=== PATIENT | female | born 1940 | race Caucasian/White ===

== ENCOUNTER → 2016-08-21 | Outpatient (CLI) | payer OTHER | LOC: BHLMT 13:30 | PROVIDERS: ATTEND Internal Medicine Cardiovascular Disease | DX: Z01.818 Encounter for other preprocedural examination (principal); R06.09 Other forms of dyspnea; G47.33 Obstructive sleep apnea (adult) (pediatric); I10 Essential (primary) hypertension; I51.9 Heart disease, unspecified; I48.0 Paroxysmal atrial fibrillation | CPT/HCPCS: 93005-PO ==

== ENCOUNTER 2016-08-26 07:25 | Inpatient (IN) | payer OTHER ==
[2016-08-10 10:46] LABS: % IMMATURE GRANULYOCYTES 0.2 % (0.0-1.1); ABSOLUTE IMMATURE GRANULOCYTES 0.02 10^3/uL (0.00-0.10); ADD DIFF? NO; ADD MORPH? NO; ADD SCAN? NO; ATYPICAL LYMPHOCYTE FLAG 0 (0-99); FRAGMENT RBC FLAG 0 (0-99); HEMATOCRIT 39.7 % (38.0-47.0); HEMOGLOBIN 13.6 g/dL (12.6-16.3); LEFT SHIFT FLG 0 (0-99); LIPEMIA HEMOLYSIS FLAG 90 (0-99); MEAN CELL HEMOGLOBIN 30.8 pg (27.9-34.1); MEAN CELL HEMOGLOBIN CONCENTR. 34.3 g/dL (32.4-36.7); PLATELET CLUMPS FLAG 0 (0-99); PLATELET COUNT 283 10^3/uL (150-400); RED BLOOD CELL COUNT 4.41 10^6/uL (4.18-5.33); RED CELL DISTRIBUTION WIDTH 12.1 % (11.5-15.2)
[2016-08-10 11:05] LABS: ANION GAP 12 mEq/L (8-16); CALCIUM 9.9 mg/dL (8.5-10.4); CARBON DIOXIDE 23 mEq/l (22-31); CHLORIDE 105 mEq/L (97-110); CREATININE 1.1 mg/dL (0.6-1.0); GLOMERULAR FILTRATION RATE 48; GLUCOSE 104 mg/dL (70-100); POTASSIUM 4.4 mEq/L (3.5-5.2); SODIUM 140 mEq/L (134-144)
--- NOTE | 2016-08-25 21:09 | GHP ---
[f rep st] PREOP HISTORY AND PHYSICAL DATE OF ADMISSION: 08/26/2016 PROBLEM: Severe right knee degenerative arthritis. HISTORY OF PRESENT ILLNESS: The patient is a 76-year-old female who will be admitted for a right total knee arthroplasty with Dr. Valdez at [facility] on August 26, 2016. The patient has had several years of progressive and more debilitating pain in the right knee. She underwent a left total knee arthroplasty in 2009 with a good result. Because of her recalcitrant response to conservative therapies of the right knee, she has elected to proceed with the surgery. She has tried and failed physical therapy , cortisone injection, viscosupplementation injections; and NSAIDs are contraindicated in her particular case. The patient has pain that prevents her from falling asleep quickly at night. Her knee is also very stiff for several hours in the morning. Her activities have become severely limited because of the pain. PAST MEDICAL HISTORY: Pertinent for lone atrial fibrillation after recent endoscopy, sleep apnea with use of a CPAP and hypertension. No history of MRSA , CAD, DVT, PE or hepatitis. CURRENT MEDICATIONS: Hydrochlorothiazide 12.5 mg daily, Pepcid 20 mg b.i.d., glucosamine omega-3, multivitamin, magnesium, vitamin D and potassium. MEDICATION ALLERGIES: Penicillin which causes hives, and sulfa allergy which causes vomiting. Please note that the patient has taken Celebrex without any problems in the past. SOCIAL HISTORY: The patient is a . She lives alone in [place]. She is retired. Nonsmoker. No alcohol intake. No caffeine or illicit drug use. Her activities include cycling and swimming. FAMILY HISTORY: Pertinent for esophageal cancer and breast cancer. PHYSICAL EXAMINATION: GENERAL: She is a healthy-appearing 76-year-old female. VITAL SIGNS: Height 5 feet, 7 inches tall. Weight 198 pounds. BMI 31. HEENT: Head is normocephalic, atraumatic. Eyes are PERRLA. Conjunctivae and sclerae are clear. Mouth: She has good oral hygiene without any loose teeth. LUNGS: Clear. HEART: Regular rate and rhythm without murmurs, gallops or rubs. EXTREMITIES: Pertinent findings are limited to the patient's right knee. She has full right knee extension, 115 degrees of flexion with pain at end range. There is moderate subpatellar crepitus noted with active knee extension. Her knee is stable to exam. DIAGNOSTIC IMAGING: Recent x-rays taken of the patient's right knee show near [id number] degenerative arthritis of the medial compartment and patellofemoral compartment with peripheral osteophyte formation, a moderate- sized subcortical cyst on the medial femoral condyle and increased subchondral sclerosis. IMPRESSION ON ADMISSION: 1. Severe right knee degenerative arthritis. 2. Lone atrial fibrillation after recent endoscopy. 3. Sleep apnea with use of CPAP. 4. Treated hypertension. 5. History of left total knee arthroplasty with good result. 6. History of bilateral total hip arthroplasties with good result. PLAN: The plan will be for the patient to undergo a right total knee arthroplasty. The surgery has been described to the patient including the risks , benefits and expectations. She understands the importance of postoperative physical therapy. She understands the risk of infection, blood vessel or nerve injury, persistent knee pain and/or stiffness. She also understands the risk of blood clots or PE. All of her questions have been answered, and she consents to surgery here in the office. /[id number]/MODL MTDD
[~2016-08-26 07:25] MED LIST: ACETAMINOPHEN 325 MG TAB PO ONE; CHLORHEXIDINE GLUC HIBICLENS 118 ML BTL TP ONE; DEXAMETHASONE 4 MG/ML VIAL IVP ONE; FAMOTIDINE 20 MG TAB PO ONE; NS IV ONE; POVIDONE-IODINE 20 ML in SODIUM CL IRRIG SOLUTION 500 ML IRR ONE; ROPI/epiNEPH/KETOROLAC JOINT COCKTAIL IU ONE; TRANEXAMIC ACID IV ONE
[2016-08-26] MEDS ORDERED: VANCOMYCIN 1 GM VIAL IV ONE ×2 (08:01)
[2016-08-26] MEDS ORDERED: ceFAZolin 1 GM/5 ML SYR ONE (08:02)
[2016-08-26] MEDS ORDERED: FAMOTIDINE 20 MG TAB ONE (08:19)
[2016-08-26] MEDS ORDERED: DEXAMETHASONE 4 MG/ML VIAL ONE (08:20)
[2016-08-26] MEDS ORDERED: ceFAZolin 2 GM/DEXTROSE 100 ML IV ONE (08:30)
[2016-08-26] MEDS ORDERED: ACETAMINOPHEN 325 MG TAB ONE (08:37)
[2016-08-26] MEDS ORDERED: LR 1,000 ML IV ONE (08:58)
[2016-08-26] MEDS ORDERED: PROPOFOL/EMULSION 500 MG/50 ML BOTTLE IV ONE ×2 (09:34→10:35)
[2016-08-26] MEDS ORDERED: MIDAZOLAM 2 MG/2 ML VIAL ONE (09:38)
[2016-08-26] MEDS ORDERED: ROPIVACAINE HCL 150 MG/30 ML INJ ONE (11:00)
[2016-08-26] MEDS ORDERED: clonIDINE 1 MG/10 ML VIAL EP ONE (11:00)
[2016-08-26] MEDS ORDERED: ONDANSETRON DISINTEGRATING 4 MG TAB PO PRN (11:49)
[2016-08-26] MEDS ORDERED: oxyCODONE IR 5 MG TAB PO PRN (11:49)
[2016-08-26] MEDS ORDERED: TEMAZEPAM 15 MG CAP PO PRN (11:49)
[2016-08-26] MEDS ORDERED: METOCLOPRAMIDE 10 MG/2 ML VIAL IVP PRN (11:49)
[2016-08-26] MEDS ORDERED: ONDANSETRON 4 MG/2 ML VIAL IVP PRN (11:49)
[2016-08-26] MEDS ORDERED: DIPHENOXYLATE/ATROPINE LOMOTIL 1 TAB PO PRN (11:49)
[2016-08-26] MEDS ORDERED: NS 500 ML IV PRN (11:49)
[2016-08-26] MEDS ORDERED: diphenhydrAMINE 25 MG CAP PO PRN (11:49)
[2016-08-26] MEDS ORDERED: BISACODYL 10 MG SUPP PR PRN (11:49)
[2016-08-26] MEDS ORDERED: LACTULOSE 20 GM/30 ML UDCUP PO PRN (11:49)
[2016-08-26] MEDS ORDERED: POLYETHYLENE GLYCOL 3350 17 GM PKT PO PRN (11:49)
[2016-08-26] MEDS ORDERED: CYCLOBENZAPRINE 10 MG TAB PO PRN (11:49)
[2016-08-26] MEDS ORDERED: MAGNESIUM HYDROXIDE 30 ML UDCUP PO PRN (11:49)
[2016-08-26] MEDS ORDERED: PHARMACY PAIN CONSULT 1 EA MISC PRN (11:49)
[2016-08-26] MEDS ORDERED: KETOROLAC 30 MG/1 ML SDV IVP PRN (11:49)
[2016-08-26] MEDS ORDERED: PROMETHAZINE HCL 25 MG SUPPR PR PRN (11:49)
--- NOTE | 2016-08-26 11:59 | POSTOPPROG ---
Post Op Note Date of Operation: 08/26/16 Surgeon: Jarrod Valdez Accounts Receivable Analyst: Aminata Anesthesiologist: Milagro Anesthesia: IV Sedation, Spinal Post-op Diagnosis: R knee arthritis Procedure: R TKA Inf/Abcess present in the surg proc area at time of surgery?: No EBL: 50-100 (Adductor canal block)
[2016-08-26] MEDS ORDERED: LR 1,000 ML IV SCH (12:00)
--- NOTE | 2016-08-26 12:31 | GOP ---
[f rep st] OPERATIVE REPORT DATE OF OPERATION: 08/26/2016 SURGEON: Jarrod Valdez MD COAT FITTER: Nick Ramirez and Mikael May. ANESTHESIA: Combination of Marcaine spinal, IV sedation, and adductor canal block. ANESTHESIOLOGIST: Dr. Anup Humphrey. PREOPERATIVE DIAGNOSIS: Right knee severe degenerative arthritis. POSTOPERATIVE DIAGNOSIS: Right knee severe degenerative arthritis. PROCEDURE PERFORMED: Right total knee arthroplasty, cemented, Avendano and Nephew Journey II, posterio r stabilized. FINDINGS: DESCRIPTION OF PROCEDURE: The patient was given 2 g of preoperative IV Ancef within 60 minutes of s urgery. She also received IV tranexamic acid at a dose of 10 mg/kg. She was placed on the operatin g room table and given spinal anesthesia with Marcaine by Dr. Humphrey. She was then placed supine and given IV sedation. A Dick catheter was not used. She wore a DAVID stocking and SCD on the nonopera tive leg. Her right lower extremity was prepped with ChloraPrep from the upper thigh tourniquet to the tips of the toes. It was draped free using sterile sheets, stockinette, and Ioban plastic adhes juan drape. Her lower leg was wrapped with compressive Coban. The leg was exsanguinated with elevat ion and a 6-inch compressive wrap, and the pneumatic tourniquet was inflated to 300 mmHg. The World Health Organization time-out was performed to verify the correct patient identity and the correct s urgical site and side. The Boling time-out was also performed. The MediTAPayo leg holding device was sterilely attached to the operating room table and used throughout the procedure to help position th e knee. A straight midline incision was made centered on the patella. Subcutaneous tissues were sharply div ided and hemostasis was obtained using electrocautery. A medial subcutaneous flap was developed and the capsule and synovium were opened in the medial parapatellar fashion. Extensive degenerative ch anges were present in the medial compartment and patellofemoral joint. Her medial capsule and perio steum were elevated off the rim of the medial tibial plateau all the way around to the posteromedial corner. Her medial collateral ligament was released enough to balance the medial side of the knee. In order to improve exposure, her patella was prepared first. The original thickness of the gibbons la was measured. Peripheral osteophytes were removed. I cut a flat surface on the back of the bonilla lla. It was sized for a 35 mm resurfacing patellar component. I removed enough bone from the gibbons la such that the remaining bone plus the thickness of the patellar component recreated the original thickness of the patella. The composite thickness was 22 mm. The intramedullary alignment guide sy stem was used to set up the distal femoral cut. The distal femur was cut in 5 degrees of valgus. I made a +2 mm cut on the distal femur. The sizing jig was used to determine proper femoral sizing. She was a true size 6 without a shift. The 5 in 1 cutting block was applied, and the anterior and posterior condylar cuts and chamfer cuts were made. The final jig was used to remove the central po rtion of the distal femur to accommodate the posterior stabilized femoral component. I was careful to determine proper rotation by referencing off Whitesides line. Each cut was checked for accuracy before and after it was made. The femur was sized for a size 6 posterior stabilized component. The trial component was tapped securely into place and was a good fit. Next, the tibia was prepared. The proximal tibial cut was made using the extramedullary alignment g uide system. The cut was made in a few degrees of posterior slope. I was careful to achieve proper varus/valgus alignment and proper rotation. The posterior compartment was cleared of meniscal remn ants. Osteophytes were removed from the back of her femoral condyles. I checked the flexion extens ion gaps, and they were equal, balanced and rectangular. The tibia was sized for a size 4 component . With the trial components in place, I selected an 11 mm polyethylene posterior stabilized tibial insert. The knee came to full extension and flexed to 120 degrees. The bulkiness of her leg preven david further flexion. There was no overstuffing in flexion. Her collateral ligaments were stable an d balanced in 90 degrees of flexion and full extension. The trial patellar button was applied, and patellar tracking was checked. Tracking was excellent without any digital pressure. 40 mL of the j oint anesthetic cocktail was injected into the posterior capsule, the periarticular structures, the quadriceps muscle and tendon areas, and the subcutaneous tissues along the skin edges. The surfaces were prepared for cementing. They were carefully cleaned with the pulsating lavage irrigation and thoroughly dried. The CarboJet device was used to blow dry the cancellous surfaces. A double batch of high viscosity methylmethacrylate cement with 2 g of powdered vancomycin added was mixed. While it was still in a semiliquid state, all 3 components were cemented in place. Excess cement was rem marianne before it hardened. The 11 mm trial tibial insert was re-tried and was the proper thickness. The actual component was inserted and locked into place. The knee was thoroughly irrigated 1 final time with a dilute Betadine solution. The tourniquet was deflated and the total tourniquet time was 49 minutes. The vastus medialis portion of the extensor mechanism was repaired with several interrupted urgzzh-[id number]-loosf #2 FiberWire sutures. The capsule a nd synovium were closed first with multiple interrupted qjijlb-ns-aoygq 0 PDS sutures, followed by a running #2 barbed Ethicon STRATAFIX PDO suture. The subcutaneous tissues were closed with a runnin g 0 barbed Ethicon STRATAFIX Monoderm suture. The skin was closed with a running 3-0 barbed Ethicon STRATAFIX Monoderm subcuticular suture. The skin was sealed with half-inch Steri-Strips. The woun d was covered with Xeroform gauze and flat 4x4s. The knee was wrapped with Kerlix and 6-inch compre ssive wrap. A long-leg DAVID stocking and SCD were applied followed by the cooling device. The patie nt wore a stocking and SCD on the opposite leg during the procedure. I used a size 6 cemented Avendano and Nephew Oxinium posterior stabilized femoral component, a size 4 c emented tibial base plate, an 11 mm posterior stabilized tibial insert, and a 35 mm cemented round a ll-polyethylene resurfacing patellar component. The estimated blood loss following placement of the tourniquet was about 100 mL. The sponge and nee dle count were correct on 2 occasions. The patient was awakened from anesthesia, transferred to her [facility] and taken to PACU in sa tisfactory condition. There were no intraoperative complications. In the PACU, for additional postoperative pain control, Dr. Humphrey performed an adductor canal block. Nick Ramirez and Mikael May acted as surgical assistants. Their assistance was a medical abel sheikh. /[id number]/MODL
[2016-08-26] MEDS: ACETAMINOPHEN 325 MG TAB PO SCH ×3 (13:09→23:42)
[2016-08-26] MEDS: ceFAZolin 2 GM/DEXTROSE 100 ML IV SCH ×2 (13:44→21:16)
[2016-08-26] MEDS: TRANEXAMIC ACID 650 MG TAB PO SCH ×2 (17:26→23:42)
[2016-08-26] MEDS: traMADol 50 MG TAB PO PRN (20:21)
[2016-08-26] MEDS: ASPIRIN 325 MG TAB PO SCH (20:21)
[2016-08-26] MEDS: FAMOTIDINE 20 MG TAB PO SCH (20:21)
[2016-08-26] MEDS: SENNOSIDES/DOCUSATE SODIUM TAB PO SCH (20:22)
[2016-08-27 05:04] LABS: HEMATOCRIT 31.4 % (38.0-47.0); HEMOGLOBIN 10.6 g/dL (12.6-16.3)
[2016-08-27] MEDS: ACETAMINOPHEN 325 MG TAB PO SCH ×2 (05:12→13:24)
[2016-08-27 05:28] LABS: GLOMERULAR FILTRATION RATE 54
--- NOTE | 2016-08-27 07:43 | SOAPPROG ---
SOAP Progress Note Assessment/Plan: Assessment: Afebrile. Awake and alert. Mild pain so far. Has been up and walking in room. H/H is good. Films look good. Plan:More PT today. DC later today. 08/27/16 07:38 Objective: Vital Signs Temp Pulse Resp BP Pulse Ox 36.4 C 73 16 129/66 H 93 08/27/16 07:07 08/27/16 07:07 08/27/16 07:07 08/27/16 07:07 08/27/16 07:07 Laboratory Results 08/27/16 04:34 08/27/16 04:34 08/26/16 08/27/16 08/28/16 05:59 05:59 05:59 Intake Total 2795 Output Total 1350 Balance 1445 ICD10 Worksheet Patient Problems: Problems Problem Status Onset Knee osteoarthritis Acute - ICD10 Problem Qualifiers (1) Knee osteoarthritis Qualifiers: Osteoarthritis type: primary Laterality: right Qualified Code(s): M17.11 - Unilateral primary osteoarthritis, right knee
--- NOTE | 2016-08-27 07:47 | PDIAF ---
- Diagnosis Diagnosis: right knee osteoarthritis Code Status: Full Code - Medication Management Discharge Medications: Medications to Continue on Transfer Cholecalciferol Vit D3 [Vitamin D3 2000 units tab (OTC)] 4,000 units PO DAILY [Last Taken 08/18/16] Famotidine [Pepcid 20 MG (*)] 20 mg PO DAILY 08/07/16 [Last Taken 08/26/16] Herbals/Supplements -Info Only 1 ea PO DAILY 08/07/16 [Last Taken Unknown] Hydrochlorothiazide [HCTZ (*)] 12.5 mg PO DAILY 08/07/16 [Last Taken 08/25/16] Multivitamins [Multivitamin (*)] 1 tab DAILY 08/07/16 [Last Taken 08/18/16] Acetaminophen [Tylenol 325mg (*)] 650 mg PO Q6HRS #0 tab 08/27/16 [Last Taken Unknown] Aspirin [Aspirin 325 mg (*)] 325 mg PO DAILY #21 tab 08/27/16 [Last Taken Unknown] Ferrous Sulfate [Slow Fe 140 MG (*)] 140 mg PO DAILY #30 tab.er 08/27/16 [Last Taken Unknown] Ondansetron Odt [Zofran Odt 4 mg (*)] 4 mg PO Q4HRS PRN #0 tab 08/27/16 [Last Taken Unknown] oxyCODONE IR [Oxycodone Ir (*)] 5 - 10 mg PO Q3HRS PRN #0 tab 08/27/16 [Last Taken Unknown] traMADol [Ultram 50 mg (*)] 50 mg PO Q6HRS PRN #0 tab 08/27/16 [Last Taken Unknown] Discharge Medications: Refer to the Discharge Home Medication list for PRN reason. PICC Care - Routine: N/A - Orders Services needed: Home Care, Physical Therapy Home Care Face to Face: I certify that this patient was under my care and that I had the required [id number] encounter meeting the encounter requirements on the discharge day. My findings support the fact that the patient is homebound as defined in CMS Chapter 7 Medicare Benefits Manual 30.1.1, The condition of the patient is such that there exists a normal inability to leave home and consequently, leaving home would require a considerable and taxing effort. Diet Recommendation: no restrictions on diet Diet Texture: Regular Texture Diet Dick: Not applicable Juan Stockings Discontinue Date: 1 week Wound Care Instructions: keep clean and dry. You may shower. Activity/Weight Bearing Restrictions: as tolerated. - Follow Up Care Current Providers and Referrals: Ninfa Trujillo NP [Primary Care Provider] - Jarrod Valdez MD [Medical Doctor] - 09/10/16 10:15 am
[2016-08-27] MEDS: ASPIRIN 325 MG TAB PO SCH (07:55)
[2016-08-27] MEDS: FAMOTIDINE 20 MG TAB PO SCH (07:57)
[2016-08-27] MEDS: TRANEXAMIC ACID 650 MG TAB PO SCH (07:58)
[2016-08-27] MEDS: SENNOSIDES/DOCUSATE SODIUM TAB PO SCH (07:58)
[2016-08-27] MEDS: traMADol 50 MG TAB PO PRN ×2 (07:59→14:08)
--- NOTE | 2016-08-27 08:28 | GDS ---
[f rep st] DISCHARGE SUMMARY ADMISSION DIAGNOSIS: Right knee degenerative arthritis. DISCHARGE DIAGNOSIS: Right knee degenerative arthritis. OPERATION: 08/26/2016, right total knee arthroplasty. POSTOPERATIVE COMPLICATIONS: None. CONDITION ON DISCHARGE: Improved. DESCRIPTION OF HOSPITAL COURSE: The patient was admitted to the hospital on the morning of surgery. Her admission CBC and electrolytes were normal. BUN 17, creatinine 1.1. The same day, under a co mbination of Marcaine and spinal, IV sedation, and adductor canal block, she underwent a right total knee arthroplasty. Postoperatively, she was treated with multimodal DVT prophylaxis including aspi rin. On the 1st postoperative day, her hemoglobin and hematocrit were 10.6 and 31.4. Her BUN and c reatinine were 23 and 1.0. She was seen by Physical Therapy and made good progress with ambulation and knee range of motion. By the time of discharge, she was afebrile, and she was independent walki ng with a walker. DISPOSITION: She is discharged to her home. She will have home physical therapy. She may progress to full weightbearing on the right as tolerated. Use DAVID stockings for 1 week. Continue aspirin 3 25 mg p.o. daily for 21 days. I will see her back in the office on 09/10/2016. If there are any pr oblems, she is to call me at the office. /[id number]/MODL
[2016-08-27] MEDS ORDERED: CHOLECALCIFEROL VIT D3 2,000 UNITS TAB/CAP PO SCH (09:00)
[2016-08-27] MEDS ORDERED: MULTIVITAMINS 1 EACH TAB PO SCH (09:00)
[2016-08-27] MEDS ORDERED: FERROUS SULFATE 140 MG TAB.ER PO SCH (09:00)
[2016-08-27] MEDS ORDERED: HYDROCHLOROTHIAZIDE PO SCH (09:00)
[2016-08-27] MEDS ORDERED: HYDROCHLOROTHIAZIDE 12.5 MG CAP PO SCH ×2 (09:00)
[2016-08-27] MEDS ORDERED: FAMOTIDINE 20 MG TAB PO SCH (09:00)
[2016-08-27 11:56] VITALS: TEMP 98.1
[2016-08-27 16:40] VITALS: BP 122/66; PULSE 67; RESP 16; O2SAT 93
== END 2016-08-27 17:45 | disposition home health service (06) | DRG 470 ==
LOC: FSGY 07:25 → F3N 11:58
PROVIDERS: ADMIT Orthopaedic Surgery; ATTEND Orthopaedic Surgery
PROC: 0SRC0J9 Replacement of Right Knee Joint with Synthetic Substitute, Cemented, Open Approach (ICD-10-PCS; principal; 2016-08-26 09:30)
DX: M17.11 Unilateral primary osteoarthritis, right knee (principal); G47.33 Obstructive sleep apnea (adult) (pediatric); I48.91 Unspecified atrial fibrillation; I10 Essential (primary) hypertension; E78.5 Hyperlipidemia, unspecified; Z96.652 Presence of left artificial knee joint; Z96.643 Presence of artificial hip joint, bilateral
CPT/HCPCS: 97116-GP; 97161-GP; 97165-GO; C1713; G8978-GP-CJ; G8979-GP-CI; G8980-GP-CI; G8987-GO-CI; G8988-GO-CI; G8989-GO-CI; J0171; J0690; J0735; J1100; J1885; J2250; J2704; J2795; J3370

== ENCOUNTER 2016-12-04 07:00 | Day surgery (SDC) | payer OTHER ==
--- NOTE | 2016-12-04 07:04 | PDHPUP ---
History & Physical Update H&P update statement: This history and physical update is based on an assessment of the patient which was completed after admission or registration (within 24 hours), but prior to the surgery/procedure. H&P update: H&P reviewed & patient examined, no change in patient's condition since H&P completed
[2016-12-04] MEDS ORDERED: BUPIVACAINE 0.5% 30 ML SDV ONE (07:13)
[2016-12-04] MEDS ORDERED: ceFAZolin 1 GM/5 ML SYR ONE (07:14)
[2016-12-04] MEDS ORDERED: HEPARIN 1000 UNIT/1 ML MDV ONE (07:14)
[2016-12-04] MEDS ORDERED: cefOXitin SODIUM 2 GM in D5W 100 ML IV ONE (07:22)
[2016-12-04] MEDS ORDERED: LIDOCAINE 1% 2 ML INJ ID PRN (07:22)
[2016-12-04] MEDS ORDERED: LR 1,000 ML IV ONE (07:22)
[2016-12-04 07:55] LABS: ANION GAP 13 mEq/L (8-16); CARBON DIOXIDE 21 mEq/l (22-31); CHLORIDE 109 mEq/L (97-110); CREATININE 1.1 mg/dL (0.6-1.0); GLOMERULAR FILTRATION RATE 48; GLUCOSE 96 mg/dL (70-100); POTASSIUM 3.9 mEq/L (3.5-5.2); SODIUM 143 mEq/L (134-144)
[2016-12-04] MEDS ORDERED: MIDAZOLAM 2 MG/2 ML VIAL IVP ONE (08:58)
[2016-12-04] MEDS ORDERED: NALOXONE HCL 0.4 MG/ML INJ IVP PRN (08:59)
[2016-12-04] MEDS ORDERED: HYDROmorphONE/DILAUDID 1 MG/ML SYR IVP PRN ×2 (08:59)
[2016-12-04] MEDS ORDERED: ONDANSETRON 4 MG/2 ML VIAL IVP PRN (08:59)
[2016-12-04] MEDS ORDERED: fentaNYL 100 MCG/2 ML INJ IVP PRN ×2 (08:59)
[2016-12-04] MEDS ORDERED: ACETAMINOPHEN 500 MG TAB PO PRN (08:59)
--- NOTE | 2016-12-04 09:01 | PDANEPAE ---
ANE History of Present Illness 76yo F for Lap Nakia ANE Past Medical History - Cardiovascular History Hx Hypertension: Yes Hx Arrhythmias: No Hx Chest Pain: No Hx Coronary Artery / Peripheral Vascular Disease: No Hx CHF / Valvular Disease: No Hx Palpitations: No Cardiovascular History Comment: A-FIB X 1 - Pulmonary History Hx COPD: No Hx Asthma/Reactive Airway Disease: No Hx Recent Upper Respiratory Infection: No Hx Oxygen in Use at Home: No Hx Sleep Apnea: Yes Sleep Apnea Screening Result - Last Documented: Positive - Neurologic History Hx Cerebrovascular Accident: No Hx Seizures: No Hx Dementia: No - Endocrine History Hx Diabetes: No - Renal History Hx Renal Disorders: No - Liver History Hx Hepatic Disorders: No - Neurological & Psychiatric Hx Hx Neurological and Psychiatric Disorders: No - Cancer History Hx Cancer: No - Congenital Disorder History Hx Congenital Disorders: No - GI History Hx Gastrointestinal Disorders: Yes Gastrointestinal History Comment: GERD. CHOLECYSTITIS - Chronic Pain History Chronic Pain: Yes (RUQ) - Surgical History Prior Surgeries: RT TOTAL KNEE 08/26/2016. RIGHT HIP REPLACEMENT 2011. LEFT KNEE REPLACEMENT 2010. LEFT HIP REPLACMENT 2007. SPINAL FUSION L4/5 S1 2004. HYSTERECTOMY 2001. BILATERAL BUNION SURGERY 1997 ANE Review of Systems Review of systems is: negative - Exercise capacity METS (RN): 4 METS ANE Patient History - Allergies Allergies/Adverse Reactions: Penicillins Allergy (Verified 08/07/16 11:04) Hives - Home Medications Home Medications: Cholecalciferol Vit D3 [Vitamin D3 2000 units tab (OTC)] 4,000 units PO DAILY [Last Taken 11/14/16] Famotidine [Pepcid 20 MG (*)] 20 mg PO HS 08/07/16 [Last Taken 12/03/16] Herbals/Supplements -Info Only 1 ea PO DAILY 08/07/16 [Last Taken 11/14/16] Hydrochlorothiazide [HCTZ (*)] 12.5 mg PO DAILY06 08/07/16 [Last Taken 11/30/16] Multivitamins [Multivitamin (*)] 1 tab DAILY 08/07/16 [Last Taken 11/14/16] - NPO status NPO Since - Liquids (Date): 12/04/16 NPO Since - Liquids (Time): 05:00 NPO Since - Solids (Date): 12/03/16 NPO Since - Solids (Time): 18:00 - Smoking Hx Smoking Status: Never smoked ANE Labs/Vital Signs - Labs Result Diagrams: 12/04/16 07:35 - Vital Signs Blood Pressure: 156/74 Heart Rate: 64 Respiratory Rate: 16 O2 Sat (%): 93 Height: 170.18 cm Weight: 97.522 kg ANE Physical Exam - Airway Neck exam: FROM Mallampati Score: Class 2 Mouth exam: normal dental/mouth exam - Pulmonary Pulmonary: clear to auscultation - Cardiovascular Cardiovascular: regular rate and rhythym - ASA Status ASA Status: II ANE Anesthesia Plan Anesthesia Plan: general endotracheal anesthesia
[2016-12-04] MEDS ORDERED: MIDAZOLAM 2 MG/2 ML VIAL ONE (09:05)
[2016-12-04] MEDS ORDERED: LIDOCAINE 2% 5 ML SDV ONE (09:08)
[2016-12-04] MEDS ORDERED: fentaNYL 100 MCG/2 ML INJ ONE ×2 (09:08→10:23)
[2016-12-04] MEDS ORDERED: PROPOFOL 200 MG/20 ML VIAL ONE (09:08)
[2016-12-04] MEDS ORDERED: ROCURONIUM 50 MG/5 ML VIAL ONE (09:09)
[2016-12-04] MEDS ORDERED: epHEDrine SULFATE 10 MG/ML SYR ONE ×2 (09:32→09:39)
[2016-12-04] MEDS ORDERED: GLYCOPYRROLATE 0.2 MG/1 ML VIAL ONE (09:39)
[2016-12-04] MEDS ORDERED: SUGAMMADEX SODIUM 200 MG/2 ML VIAL IVP ONE (09:54)
--- NOTE | 2016-12-04 10:05 | POSTOPPROG ---
Post Op Note Date of Operation: 12/04/16 Surgeon: Ran Jackson Claim Clerk: vi Anesthesiologist: josea Anesthesia: GET(General Endotracheal) Pre-op Diagnosis: gallstones Post-op Diagnosis: cholelithiasis, umbilical hernia Indication: 76yo F with symptomatic cholelithiasis, umbilical hernia Procedure: open umbilical hernia repair, lap lata Findings: incacerated omentum in umbilical hernia, stones Inf/Abcess present in the surg proc area at time of surgery?: No Depth: Deep Incisional (Fascial) EBL: Minimal Complications: none immediately postoperatively Specimen(s): hernia sac gallbladder
--- NOTE | 2016-12-04 10:05 | POSTANESTH ---
Post Anesthetic Evaluation Cardiovascular Status: Normal, Stable Respiratory Status: Normal, Stable Level of Consciousness/Mental Status: Can Participate in Eval, Alert and Oriented Pain Control: Adequate, Prn Tx Ordered Nausea/Vomiting Control: Adequate, Prn Tx Ordered Complications Possibly Related to Anesthesia: None Noted
[2016-12-04] MEDS ORDERED: ONDANSETRON 4 MG/2 ML VIAL ONE (11:50)
[2016-12-04] MEDS ORDERED: HYDROCODONE/APAP 5/325 TAB PO ONE (12:15)
[2016-12-04 12:20] VITALS: PULSE 67; RESP 14
[2016-12-04 14:15] VITALS: BP 120/77; TEMP 97.5; O2SAT 96
== END 2016-12-04 14:15 | disposition home or self-care (01) ==
LOC: FSGY 07:00
PROVIDERS: ATTEND Surgery
PROC: 0WQF0ZZ Repair Abdominal Wall, Open Approach (ICD-10-PCS; principal; 2016-12-04 09:30)
PROC: 0FT44ZZ Resection of Gallbladder, Percutaneous Endoscopic Approach (ICD-10-PCS; principal; 2016-12-04 09:30)
DX: K80.10 Calculus of gallbladder with chronic cholecystitis without obstruction (principal); K42.0 Umbilical hernia with obstruction, without gangrene; G47.33 Obstructive sleep apnea (adult) (pediatric); I10 Essential (primary) hypertension; Z96.653 Presence of artificial knee joint, bilateral; Z96.643 Presence of artificial hip joint, bilateral
CPT/HCPCS: J0694; J2250; J2405; J2704; J3010

== ENCOUNTER → 2017-05-12 | Outpatient (CLI) | payer OTHER | LOC: CIMAGING 10:56 | PROVIDERS: ATTEND Nurse Practitioner | DX: Z12.31 Encounter for screening mammogram for malignant neoplasm of breast (principal); Z80.3 Family history of malignant neoplasm of breast | CPT/HCPCS: G0202 ==

== ENCOUNTER 2018-07-09 18:21 | Emergency (ER) | payer OTHER ==
[2018-07-09 18:41] VITALS: BP 145/80
--- NOTE | 2018-07-09 18:55 | EDPHY ---
H & P Time Seen by Provider: 07/09/18 18:26 HPI/ROS: HPI Right ankle and knee injury. This patient reports that she slipped on some ice at approximately 4:30 p.m. Today. She reports that she twisted and landed on her right knee followed by twisting and johnson in her right ankle. She presents to the emergency department by private vehicle with her son. She complains primarily of right ankle pain mostly involving the medial malleolus. She also complains of some stiffness in her right knee when she bends the right knee. She is able to bear weight on the right knee and the right ankle. She denies any other complaint or injury. She states that NSAIDs bother her stomach. She has not taken any form of pain medication for this injury. ROS: Constitutional: No fever, no chills. No weakness. Musculoskeletal: No back pain. No neck pain. As above. Skin: No lacerations or abrasions. Neurological: No headache. No focal weakness or altered sensation. Past medical history: Hypertension, osteoarthritis, atrial fibrillation, hysterectomy, right total knee replacement, bilateral hip surgery, spinal fusion , cholecystectomy. Social history: She is here with her son. Nonsmoker. No alcohol. Physical Exam: General Appearance: Alert, no distress. This patient is responding to questions appropriately and in full sentences. This patient appears well- hydrated and well-nourished. Eyes: Pupils equal and round no pallor or injection. No lid edema, erythema or injection. Right lower extremity exam: Examination of the right ankle is significant for tenderness on palpation over the medial malleolus and to a lesser extent the lateral malleolus. She has some diffuse swelling involving the medial malleolus. There is no ecchymosis. The skin is intact. No erythema or warmth. The bony aspects of the foot are nontender on palpation. The proximal fibula is nontender on palpation. The right knee does range in flexion and extension without significant pain both passively and actively. The right knee joint is stable to valgus and varus stress testing and anterior and posterior drawer testing. The right lower extremity is neurovascularly intact. Neurological: Motor sensory function is grossly intact. Cranial nerves are normal. Skin: Warm and dry, no rashes. No lacerations or abrasions. Extremities are symmetrical. All joints range without pain or impingement except noted. Psychiatric: No agitation. No depression. Database: EKG: Imaging: Right knee x-ray series: Hardware appears intact. Alignment normal. No acute pathology. Interpreted by me. Right ankle x-ray series: Distal comminuted fibular fracture with minimal displacement. The mortise appears aligned. Interpreted by me. Procedures: Emergency department course: Triage vital signs reviewed. She is mildly hypertensive. Vital signs are otherwise normal. The patient declines NSAID pain medication. She does not want any narcotics. She also declined Tylenol. She will be sent for x-rays. 7:15 p.m., the patient was re-evaluated, results of x-rays and diagnosis discussed with the patient and her son. Her son is a orthopedic physician medical claims assistant. I reviewed the patient's x-rays with him. He does not feel that operative intervention will be required. The patient's right foot and ankle be placed in an orthopedic boot. She will be provided with crutches to assist her with ambulation. She will follow up with her sons orthopedic group. Return to emergency department precautions discussed with them. She will be sent home with a take-home pack of [employer]. Return to emergency department precautions discussed. All of their questions were answered. The patient was discharged in good condition with her son. Differential Diagnosis: The differential diagnosis on this patient includes but is not limited to right ankle sprain, distal fibular fracture. Right knee contusion. Dislocation of the right ankle and right knee, significant neurovascular injury unlikely. This represents a partial list of diagnoses considered. These considerations are based on history, physical exam, past history, reassessment and diagnostic testing. Smoking Status: Never smoked Constitutional: Initial Vital Signs Temperature (C) 36.5 C 07/09/18 18:34 Heart Rate 74 07/09/18 18:34 Respiratory Rate 16 07/09/18 18:34 Blood Pressure 145/80 H 07/09/18 18:34 O2 Sat (%) 93 07/09/18 18:34 O2 Delivery Mode Room Air Allergies/Adverse Reactions: Penicillins Allergy (Verified 07/09/18 18:33) Hives Home Medications: Medication Instructions Recorded Famotidine [Pepcid 20 MG (*)] 20 mg PO HS 08/07/16 Herbals/Supplements -Info Only 1 ea PO DAILY 08/07/16 Hydrochlorothiazide [HCTZ (*)] 12.5 mg PO DAILY06 08/07/16 Multivitamins [Multivitamin (*)] 1 tab DAILY 08/07/16 Medical Decision Making - Diagnostics Imaging Results: Imaging Impressions Ankle X-Ray 07/09/18 18:47 Impression: Right knee arthroplasty with no acute fracture. Right Ankle Series, 3 Views History: Pain following trauma. Findings: There is a spiral mildly comminuted fracture of the distal right fibula. No other fracture is seen. The ankle mortise does not appear widened. Generalized osseous demineralization is noted. Impression: Lateral malleolar fracture. Knee X-Ray 07/09/18 18:47 Impression: Right knee arthroplasty with no acute fracture. Right Ankle Series, 3 Views History: Pain following trauma. Findings: There is a spiral mildly comminuted fracture of the distal right fibula. No other fracture is seen. The ankle mortise does not appear widened. Generalized osseous demineralization is noted. Impression: Lateral malleolar fracture. - Data Points Medications Given: Discontinued Medications Hydrocodone Bitart/Acetaminophen (Sabina 5/325mg Prepack#6) 1 btl TAKEHOME EDNOW ONE Stop: 07/09/18 19:23 Last Admin: 07/09/18 19:37 Dose: 1 btl Departure - Departure Disposition: Home, Routine, Self-Care Clinical Impression: Right ankle sprain, Closed right fibular fracture Condition: Good Instructions: Hydrocodone/Acetaminophen (By mouth), Ankle Fracture (ED), Crutch Instructions (ED) Additional Instructions: Read and follow provided instructions. Follow-up with your graphic design specialist this week for re-evaluation and further management. Wear orthopedic boot at all times when your up and ambulating. Narcotic pain medication: 1-2 every 4-6 hours as needed for pain. Return to the emergency department for worsening pain, swelling, discoloration, loss of sensation or other serious concerns. Referrals: Ninfa Trujillo LINK TRAINER OPERATOR [Primary Care Provider] - As per Instructions
[2018-07-09] MEDS ORDERED: HYDROCOD/APAP 5/325 PREPACK#6 BTL TAKEHOME ONE (19:22)
== END 2018-07-09 19:45 | disposition home or self-care (01) ==
LOC: CED 18:21
DX: S93.401A Sprain of unspecified ligament of right ankle, initial encounter (principal); S82.441A Displaced spiral fracture of shaft of right fibula, initial encounter for closed fracture; I10 Essential (primary) hypertension; M15.0 Primary generalized (osteo)arthritis; W00.0XXA Fall on same level due to ice and snow, initial encounter; Y92.480 Sidewalk as the place of occurrence of the external cause; Y93.01 Activity, walking, marching and hiking; Z96.651 Presence of right artificial knee joint
CPT/HCPCS: 73562; 73610; 99283; L4386